=== PATIENT | male | born 1975 | race Caucasian/White ===

== ENCOUNTER → 2017-02-28 | Outpatient (CLI) | payer BC ==
--- NOTE | 2017-02-28 11:27 | DIAGNOSTIC IMAGING REPORT ---
LEFT KNEE RADIOGRAPHS WITH COMPARISON STANDING AP RADIOGRAPH OF THE RIGHT KNEE CLINICAL HISTORY: Left knee pain. COMPARISON: None FINDINGS: Comparison standing AP radiograph of the right knee demonstrates no abnormality. Alignment of the left knee is anatomic. No fracture or joint effusion is identified. Joint spaces are preserved. IMPRESSION: Unremarkable left knee radiographs. Electronically signed by: Aleksandar Olsen M.D. 02/28/2017 11:25 AM Dictated Date/Time: 02/28/2017 11:24 AM
== END | disposition home or self-care (01) ==
LOC: C.RDSM 15:09
PROVIDERS: ATTEND Family Medicine
DX: M25.562 Pain in left knee (principal)